=== PATIENT | female | born 1980 | race Caucasian/White ===

== ENCOUNTER 2018-03-18 09:19 | Emergency (ER) | payer OTHER ==
[~2018-03-18] VITALS: Ht 165.1 cm; Wt 67.9 kg
[2018-03-18 09:22] VITALS: BP 132/98
[2018-03-18] MEDS ORDERED: KETOROLAC 30 MG/1 ML ONE (10:11)
[2018-03-18] MEDS ORDERED: KETOROLAC 30 MG/1 ML IM ONE (10:30)
== END 2018-03-18 11:14 | disposition home or self-care (01) ==
LOC: ED 11:08
DX: M54.2 Cervicalgia (principal); G89.29 Other chronic pain
CPT/HCPCS: 72050; 96372; 99284; J1885

== ENCOUNTER → 2018-09-01 | Outpatient (CLI) | payer OTHER | END | disposition home or self-care (01) | LOC: CFH 08:59 | PROVIDERS: ATTEND Obstetrics & Gynecology | DX: Z12.31 Encounter for screening mammogram for malignant neoplasm of breast (principal) | CPT/HCPCS: 77067 ==

== ENCOUNTER 2018-09-14 10:01 | Outpatient (CLI) | payer OTHER | END 2018-09-14 23:59 | disposition home or self-care (01) | LOC: CFH 10:01 | PROVIDERS: ATTEND Obstetrics & Gynecology | DX: R92.1 Mammographic calcification found on diagnostic imaging of breast (principal) | CPT/HCPCS: 77065; G0279 ==

== ENCOUNTER 2019-03-04 11:01 | Emergency (ER) | payer OTHER ==
[~2019-03-04] VITALS: Ht 165.1 cm; Wt 65.0 kg
[2019-03-04 11:06] VITALS: BP 139/95
--- NOTE | 2019-03-04 11:43 | NUR ---
WARM BLANKET AND PILLOW PROVIDED. CALL LIGHT WITHIN REACH. PT DENIES PAIN/UNDERWOOD, STATES "PRESSURE" WITHIN TOP THIRD OF HEAD WITH MORE FRONTAL FOR SIX WEEKS. PT HAD "THREADING" PROCEDURE TO BILATERAL CHEEK TO MOUTH AT [facility] 6 WEEKS AGO. PT SEEN BY PMD AND HAS BEEN TAKING KEFLEX AND STEROIDS TO TREAT.
--- NOTE | 2019-03-04 12:04 | NUR ---
PT TO CT.
--- NOTE | 2019-03-04 12:25 | NUR ---
CT RESULT BACK, PT FOR RECHECK
== END 2019-03-04 12:53 | disposition home or self-care (01) ==
LOC: ED 12:20
DX: R51 Headache (principal)
CPT/HCPCS: 70450; 99284

== ENCOUNTER → 2019-04-29 | Outpatient (CLI) | payer OTHER ==
[2019-04-29 10:47] LABS: FREE T4 (FREE THYROXINE) 1.14 ng/dL (0.76-1.46)
== END | disposition home or self-care (01) ==
LOC: LAB 10:13
PROVIDERS: ATTEND Family Medicine
DX: R51 Headache (principal); J00 Acute nasopharyngitis [common cold]
CPT/HCPCS: 36415; 84439; 84443; 84479

== ENCOUNTER → 2019-10-21 | Outpatient (CLI) | payer OTHER | END | disposition home or self-care (01) | LOC: CFH 12:07 | PROVIDERS: ATTEND Nurse Practitioner Family | DX: J34.2 Deviated nasal septum (principal); G50.0 Trigeminal neuralgia | CPT/HCPCS: 70486 ==

== ENCOUNTER 2020-05-19 09:57 | Outpatient (CLI) | payer OTHER ==
[2020-05-19 10:33] LABS: BASOPHILS % (AUTO) 1 % (0-1); EOSINOPHILS % (AUTO) 3 % (1-7); LYMPHOCYTES % (AUTO) 38 % (22-44); MEAN CORPUSCULAR HEMOGLOBIN 31.4 pg (27.0-34.8); MEAN CORPUSCULAR HGB CONC 33.9 g/dL (32.4-35.8); MEAN PLATELET VOLUME 8.7 fL (7.4-10.4); MONOCYTES % (AUTO) 6 % (2-9); NEUTROPHILS % (AUTO) 52 % (42-75); PLATELET COUNT 166 x10^3/uL (130-400); RED BLOOD COUNT 4.35 x10^6/uL (3.82-5.3); RED CELL DISTRIBUTION WIDTH 12.4 % (9.6-15.2)
[2020-05-19 10:37] LABS: MD NO
[2020-05-19 10:42] LABS: ALANINE AMINOTRANSFERASE 24 U/L (12-78); ALBUMIN 3.9 g/dL (3.4-5.0); ANION GAP 5 mmol/L (5-15); CALCIUM 8.5 mg/dL (8.5-10.1); CHLORIDE 111 mmol/L (98-107); CHOLESTEROL, TOTAL 185 mg/dL (140-239); CREATININE 0.73 mg/dL (0.55-1.02)
[2020-05-19 10:52] LABS: ALKALINE PHOSPHATASE 69 U/L (45-117); BILIRUBIN,TOTAL 0.6 mg/dL (0.2-1.0); CHOL/HDL RATIO 2.4; HDL CHOL % 41 % (28-40); HDL CHOLESTEROL (DIRECT) 76 mg/dL (40-60); LDL CHOLESTEROL,CALCULATED 98 mg/dL (54-169); LDL/HDL RATIO 1.3 (0.5-3.0); TOTAL PROTEIN 7.1 g/dL (6.4-8.2); TRIGLYCERIDES 53 mg/dL (50-200); VLDL CHOLESTEROL 11 mg/dL (0-25)
== END 2020-05-19 23:59 | disposition home or self-care (01) ==
LOC: LAB 09:57
PROVIDERS: ATTEND Family Medicine
DX: Z00.00 Encounter for general adult medical examination without abnormal findings (principal)
CPT/HCPCS: 36415; 80053; 80061; 82306; 84443; 85025

== ENCOUNTER → 2020-10-27 | Outpatient (CLI) | payer OTHER | END | disposition home or self-care (01) | LOC: CFH 09:16 | PROVIDERS: ATTEND Obstetrics & Gynecology | DX: Z12.31 Encounter for screening mammogram for malignant neoplasm of breast (principal) | CPT/HCPCS: 77063; 77067 ==